=== PATIENT | male | born 1970 | race Caucasian/White ===

== ENCOUNTER → 2024-10-15 06:20 | Day surgery (SDC) | payer BC, SELFPAY | LOC: GI 06:20 | PROVIDERS: ATTENDING PHYSICIAN Surgery | DX: Z12.11 Encounter for screening for malignant neoplasm of colon (principal); D12.2 Benign neoplasm of ascending colon; K63.5 Polyp of colon; R19.5 Other fecal abnormalities; K64.9 Unspecified hemorrhoids | CPT/HCPCS: 45380; 88305 ==